=== PATIENT | female | born 1990 | race Caucasian/White ===

== ENCOUNTER 2017-03-23 07:33 | Emergency (ER) | payer BC ==
[2017-03-23 07:43] VITALS: BP 123/66
--- NOTE | 2017-03-23 08:25 | UC ---
Respiratory Complaint HPI - HPI Summary HPI Summary: 26 yo female has been ill x about a week feverish/chills sore throat fatigue/low energy hoars cough no CP or SOB - History of Current Complaint Chief Complaint: UCRespiratory Stated Complaint: FEVER/ACHES/BLACK Hx Obtained From: Patient Hx Last Menstrual Period: unknown, on oral contraceptive Onset/Duration: Gradual Onset, Lasting Days Timing: Constant Severity Initially: Mild Severity Currently: Moderate Pain Intensity: 4 Pain Scale Used: 0-10 Numeric Character: Cough: Nonproductive Aggravating Factors: Nothing Alleviating Factors: Nothing Associated Signs And Symptoms: Positive: Fever, Pleuritic Chest Pain, Hoarseness - Allergies/Home Medications Allergies/Adverse Reactions: Allergies Allergy/AdvReac Type Severity Reaction Status Date / Time No Known Allergies Allergy Verified 03/23/17 07:43 Home Medications: Home Medications Norethindrone (Contraceptive) [Deblitane] 0.35 mg PO DAILY 03/23/17 [History Confirmed 03/23/17] PMH/Surg Hx/FS Hx/Imm Hx Previously Healthy: Yes Cardiovascular History: Pacemaker/ICD - hx AF/AFlutter/VT Respiratory History: Pneumonia Other History Of: Negative For: HIV, Hepatitis B, Hepatitis C, Anticoagulant Therapy - Surgical History Surgical History: Yes Surgery Procedure, Year, and Place: PACER/DEFIBRALATOR INSERTED. DEC 2014. CARDIAC ABLATIONS X'S 4. LOOPE RECORDER- - Family History Known Family History: Positive: Cardiac Disease, Hypertension, Diabetes - Social History Alcohol Use: Rare Substance Use Type: None Smoking Status (MU): Never Smoked Tobacco Review of Systems Constitutional: Fever, Chills, Fatigue ENT: Sore Throat Respiratory: Cough Is Patient Immunocompromised?: No All Other Systems Reviewed And Are Negative: Yes Physical Exam Triage Information Reviewed: Yes Appearance: Well-Appearing, No Pain Distress, Well-Nourished Vital Signs: Initial Vital Signs Temp 97.8 F 03/23/17 07:39 Pulse 51 03/23/17 07:39 Resp 16 03/23/17 07:39 BP 123/66 03/23/17 07:39 Pulse Ox 100 03/23/17 07:39 Vital Signs Reviewed: Yes Eyes: Positive: Conjunctiva Clear ENT: Positive: Hearing grossly normal, Pharyngeal erythema, Tonsillar swelling - mild, Hoarse voice, Uvula midline. Negative: Tonsillar exudate, Trismus, Muffled voice, Sinus tenderness Dental Exam: Normal Neck: Positive: Supple, Nontender, Enlarged Nodes @ - ant cervical Respiratory: Positive: Lungs clear, Normal breath sounds, No respiratory distress, No accessory muscle use Cardiovascular: Positive: RRR, Murmur:Sys:Grade _?_/ - II/ JENNIFER Musculoskeletal: Positive: Strength Intact, ROM Intact Neurological: Positive: Alert Psychological Exam: Normal Skin Exam: Normal UC Diagnostic Evaluation - Laboratory Pertinent Lab Values Are: WNL - STREP (-) O2 Sat by Pulse Oximetry: 100 - normal/not hypoxic - Radiology Xray Interpretation: No Acute Changes Radiology Interpretation Completed By: Radiologist Respiratory Course/Dx - Differential Dx/Diagnosis Provider Diagnoses: viral syndrome. r/o MONO Discharge - Discharge Plan Condition: Stable Disposition: HOME Patient Education Materials: Viral Syndrome (ED), Mononucleosis (ED) Referrals: Guerline Linsday MD [Primary Care Provider] - 4 Days (if not better) Additional Instructions: blood work is pending a blood count and [place] test if MONO + read handout I heard a heart murmur today...it may be due to being ill I suggest you get reexamined this week
--- NOTE | 2017-03-23 09:50 | RAD ---
Indication: Fever, cough. 2 views the chest including dual energy PA views demonstrate no mediastinal shift. Heart is of normal size and configuration. Pacemaker leads are in place. Lung geronimo are clear. IMPRESSION: No active cardiopulmonary disease is noted. Pacemaker leads are in place.
[2017-03-23 13:22] LABS: EBV Response NO
[2017-03-23 13:28] LABS: Hematocrit 29 % (35-47); Hemoglobin 9.4 g/dl (12.0-16.0); Mean Corpuscular HGB Conc 32 g/dl (31-36); Mean Corpuscular Hemoglobin 26 pg (27-31); Mean Corpuscular Volume 81 fL (80-97); Mean Platelet Volume 10 um3 (7.4-10.4); Red Blood Count 3.61 10^6/ul (4.0-5.4); Red Cell Distribution Width 15 % (10.5-15); White Blood Count 8.3 10^3/ul (3.5-10.8)
[2017-03-23 13:34] LABS: Mono Internal Control QC Line Present
--- NOTE | 2017-03-24 07:59 | UC ---
Progress - Progress Note Progress Note: please call this pt and let her know that her labs have revealed anemia. pt should follow up with pcp in the next 1-4 days. if she has any sx such as sob, cp, lightheadedness/dizziness, she should go to the ed immediately.
== END 2017-03-23 10:17 | disposition home or self-care (01) ==
LOC: UCCORT 07:33
DX: B34.9 Viral infection, unspecified (principal); D64.9 Anemia, unspecified
CPT/HCPCS: 36415; 71020; 85025; 86308; 87651; 99211; G0463

== ENCOUNTER 2017-08-30 07:27 | Emergency (ER) | payer BC ==
--- OUTSIDE RECORDS SUMMARY | 2017-08-30 07:36 | XMS REPORT ---
:1990 Author Organization [facility] Address [address] [place] [address] Care Team Providers Name Role Phone Judy Cole Unavailable Unavailable PROBLEMS Type Condition ICD9-CM Code [id number] Code Onset Condition SNOMED Code Dates Status Problem Polyp of corpus N84.0 Active 82109089 uteri Problem Other specified N92.5 Active 09905979 irregular menstruation ALLERGIES No Known Allergies ENCOUNTERS Encounter Location Date Diagnosis [facility] [address] July, OBGYN [place], [place] [id number] [facility] [address] July, Other specified irregular OBGYN [facility], menstruation N92.5 ; [place] [id number] Encounter for gynecological examination (general) (routine) without abnormal findings Z01.419 and Encounter for screening for infections with a predominantly sexual mode of transmission Z11.3 [facility] [address] Feb, Other specified irregular OBGYN [facility], menstruation N92.5 and [place] [id number] Polyp of corpus uteri N84.0 [facility] [address] Nov, Other specified irregular OBGYN [facility], menstruation N92.5 and [place] [id number] Polyp of corpus uteri N84.0 [facility] [address] [place] [place] [id number] [facility] [address] Nov, [place], [place] [id number] [facility] [address] Oct, Other specified irregular OBGYN [facility], menstruation N92.5 [place] [id number] [facility] [address] Oct, OBGYN [place], [place] [id number] [facility] [address] Sep, Other specified irregular OBGYN [facility], menstruation N92.5 [place] [id number] [facility] [address] Sep, [facility] [place] [id number] [place] [facility] [address] Sep, Other specified irregular OBGYN [facility], menstruation N92.5 [place] [id number] [place] [facility] [address] Sep, Other specified irregular OBGYN [facility], menstruation N92.5 [place] [id number] [facility] [address] Sep, Other specified irregular OBGYN [facility], menstruation N92.5 [place] [id number] [place] [facility] [address] Sep, Other specified irregular OBGYN [facility], menstruation N92.5 [place] [id number] [place] [facility] [address] Aug, Other specified irregular OBGYN [facility], menstruation N92.5 [place] [id number] [place] [facility] [address] Aug, Other specified irregular OBGYN [facility], menstruation N92.5 [place] [id number] [facility] [address] Aug, OBGYN [place], [place] [id number] [facility] [address] July, Encounter for OBGYN [facility], gynecological examination [place] [id number] (general) (routine) without abnormal findings Z01.419 ; Encounter for screening for malignant neoplasm of cervix Z12.4 and Other specified irregular menstruation N92.5 IMMUNIZATIONS No Known Immunizations SOCIAL HISTORY Never Assessed REASON FOR REFERRAL FUNCTIONAL STATUS PLAN OF CARE Activity Details Follow Up 1 Year for annual exam Reason: Pending Test CTNG by Swab Pending Test THYROID STIM HORMONE Pending Test FREE T4 Pending Test PROLACTIN VITAL SIGNS Height 66 in 2017-08-20 Weight 155 lbs 2017-08-20 BMI 25.01 kg/m2 2017-08-20 Blood pressure systolic 120 mm Hg 2017-08-20 Blood pressure diastolic 70 mm Hg 2017-08-20 MEDICATIONS Medication Instructions Dosage Frequency Start Date End Date Duration Status B-12 500 mcg sublingually 3 1 tab(s) 8h Active times a day Norlyroc 0.35 orally once a day 1 tab(s) 24h 84 days Active mg PROCEDURES Procedure Date Ordered Result Body Site URINE TEST August 20, 2017 RESULTS Name Result Date Reference Range URINE TEST REASON FOR VISIT annual MEDICAL (GENERAL) HISTORY Type Description Date Medical History cardiomyopathy Medical History hypotension Medical History ventricular tachycardia Medical History atrial flutter Medical History sinus arythmia Medical History first degree heart block Medical History vasovagal syncope Surgical History cardiac ablation 2009 Surgical History cardiac ablation x2 2010 Surgical History cardiac ablation 2014 Surgical History loop recorder implant 2014 Surgical History loop recorder removed 2014 Surgical History ICD 2015 Surgical History hysteroscopy/dilation and polypectomy 12/04/16 Hospitalization History see above
--- OUTSIDE RECORDS SUMMARY | 2017-08-30 07:36 | XMS REPORT ---
:1990 External Reference #:[id number] Author Organization [facility] 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 Unavailable Guerline Lindsay MD Primary Care Physician Unavailable Payers Type Date Identification Numbers Payment Provider Subscriber Commercial Policy Number: [id number] Rubén Edward PayID: [id number] [address] [address] [place] [address] Medigap Part B Effective: 2001 Policy Number: [id number] Rubén Edward Expires: 2011 PayID: [id number] [address] [address] [place] [address] Problems Date Description Provider Status Onset: 08/09/2010 Atrial flutter Jori Hunter M.D., Active FACC Onset: 06/19/2011 Palpitations Jori Hunter M.D., Active FACC Onset: 12/14/2012 Dyspnea Jori Hunter M.D., Active FACC Onset: 12/14/2012 Dizziness and giddiness Jori Hunter M.D., Active FACC Onset: 11/15/2013 Syncope and collapse Jori Hunter M.D., Active FACC Onset: 11/15/2013 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., Active FACC Onset: 11/15/2013 Orthostatic hypotension Jori Hunter M.D., Active FACC Onset: 10/01/2014 Hypomagnesemia Active Onset: 11/05/2013 Syncope Active Onset: 11/14/2015 Spontaneous ecchymosis Jori Hunter M.D., Active FACC Onset: 02/14/2015 Automatic implantable cardiac Jori Hunter M.D., Active defibrillator in situ FACC Onset: 12/09/2014 Bradycardia, unspecified Jori Hunter M.D., Active FACC Onset: 11/11/2014 Tachycardia Jori Hunter M.D., Active FACC Onset: 11/11/2014 Paroxysmal ventricular Jori Hunter M.D., Active tachycardia FACC Family History Date Family Member(s) Problem(s) Comments Father Muscular Dystrophy Mother Mitral Valve Prolapse Mother RBBB Mother Hypertension Mother Cancer Thyroid First Sister Hypertension Social History Type Date Description Comments Lives With Mother And Father Diet Healthy, Well Balanced 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 Working Cigarette Use Never Smoked Cigarettes ETOH Use Rarely consumes alcohol Recreational Drug Use Denies Drug Use Daily Caffeine Consumes on average 2 cups of regular coffee per day Allergies, Adverse Reactions, Alerts Date Description Reaction Status Severity Comments 12/27/2009 NKDA active Medications Medication Date Status Form Strength Qnty SIG Indications Ordering Provider Knee Brace 04/25 Active Misc 1unit apply to M25.562 [facility] s affected MD Angélica Hinged/Maximum area (left Support knee) during day Methyl B-12 Active [place] Unknown /0000 Deblitane Active Tablets 0.35mg as directed Unknown /0000 Diclofenac Sodium 05/28 Hx Tablets 50mg 60tab [address] espinal a day with [place], - food Belinda 07/04 Fludrocortisone 11/26 Hx Tablets 0.1mg 30tab 1 by mouth Jori Sheppard s every day Heike Hunter M.D., FACC 09/30 Metoprolol 11/13 Hx Tablets 25mg 90tab 1/2 by R00.0 Jori M. Succinate ER 24HR s mouth every Davidpita, - hs Belinda, [facility] 11/04 Metoprolol 05/23 Hx Tablets 25mg 90tab /2 by R00.0 Jori M. Succinate ER 24HR s mouth every Davidpita, - day Belinda, [facility] 11/13 Magnesium Oxide 04/06 Hx Capsules 400mg 90cap 2 by Jori M. s mouth twice Elsa, a day Belinda, [facility] Flecainide 08/11 Hx Tablets 50mg 30tab 1 by mouth Jori MZain s 1/2 hour quinn Hunter M.D., [facility] exercising Hyoscyamine 07/19 Hx Tablets 0.125mg 90tab take 1 or 2 Jori Sheppard s tabs when Elsa needed up Belinda, [facility] to 3 times a day Midodrine HCL 11/15 Hx Tablets 10mg 60tab 1 by mouth Jori Zain s twice a day francis Hunter M.D., [facility] No Active 06/18 Hx Unknown Medications - 11/15 Aspirin 01/23 Hx Tablets 81mg 1 po qd 427.32 Ashlie RICARDO Otero, COMPANION Propafenone HCL 08/28 Hx Tablets 150mg 90tab 1 po tid 427.32 Jori MZain teddy Hunter M.D., [facility] Metoprolol 08/23 Hx Tablets 25mg 60tab 1 po bid 427.32 Jori M. Tartrate Heike Asencio M.D., [facility] 08/28 Metoprolol 08/09 Hx Tablets 25mg 60tab 1 po bid 427.32 Jori M. Tartrate teddy Hunter M.D., [facility] Vitamin C Hx Chewtabs 500mg po bid Ashlie / RICARDO Otero, COMPANION Propafenone HCL Hx Tablets 150mg 1/2 tab by 427.32 Unknown /0000 mouth twice a day Aspirin Hx Tablets 325mg 90tab 1 po qd 427.32 Unknown /0000 s - 01/23 Ibuprofen Hx Capsules 200mg 1 tab by 427.32 Unknown /0000 mouth every - day as 01/23 Fludrocortisone Hx Tablets 0.1mg 90tab 1 tab by Jori Sheppard Acetate /0000 s mouth every , M.Barbara, [facility] Aspirin Hx Tablets 81mg 1 by mouth Unknown /0000 every day - 11/13 Vital Signs Date Vital Result Comment 05/28/2017 BP Systolic Sitting Left Arm 104 mmHg BP Diastolic Sitting Left Arm 58 mmHg Heart Rate 52 /min Respiratory Rate 16 /min Height 66 inches 5'6" Weight 157.00 lb BMI (Body Mass Index) 25.3 kg/m2 BSA (Body Surface Area) 1.80 m2 Bandy body weight in kilograms 59 11/27/2016 BP Systolic Sitting Left Arm 116 mmHg BP Diastolic Sitting Left Arm 62 mmHg Heart Rate 51 /min Respiratory Rate 16 /min Height 66 inches 5'6" Weight 148.00 lb BMI (Body Mass Index) 23.9 kg/m2 BSA (Body Surface Area) 1.76 m2 Bandy body weight in kilograms 59 05/28/2016 BP Systolic Sitting Left Arm 111 mmHg BP Diastolic Sitting Left Arm 69 mmHg Heart Rate 50 /min Height 66 inches 5'6" Weight 162.00 lb BMI (Body Mass Index) 26.1 kg/m2 BSA (Body Surface Area) 1.83 m2 Bandy body weight in kilograms 59 04/25/2016 BP Systolic 124 mmHg BP Diastolic 64 mmHg Heart Rate 50 /min Height 65 inches 5'5" Weight 168.00 lb BMI (Body Mass Index) 28.0 kg/m2 BSA (Body Surface Area) 1.84 m2 Bandy body weight in kilograms 57 11/14/2015 BP Systolic 102 mmHg BP Diastolic 66 mmHg Heart Rate 60 /min Respiratory Rate 18 /min Weight 162.00 lb 07/04/2015 BP Systolic Sitting Left Arm 102 mmHg BP Diastolic Sitting Left Arm 64 mmHg Heart Rate 58 /min Height 65 inches 5'5" Weight 162.00 lb BMI (Body Mass Index) 27.0 kg/m2 BSA (Body Surface Area) 1.81 m2 04/06/2015 BP Systolic Sitting Left Arm 100 mmHg BP Diastolic Sitting Left Arm 56 mmHg Heart Rate 56 /min Respiratory Rate 16 /min Height 65 inches 5'5" Weight 159.00 lb BMI (Body Mass Index) 26.5 kg/m2 BSA (Body Surface Area) 1.79 m2 02/14/2015 BP Systolic Sitting Left Arm 106 mmHg BP Diastolic Sitting Left Arm 74 mmHg Heart Rate 54 /min Height 65 inches 5'5" Weight 157.00 lb BMI (Body Mass Index) 26.1 kg/m2 BSA (Body Surface Area) 1.78 m2 O2 % BldC Oximetry 95 % 12/09/2014 BP Systolic Sitting Right Arm 120 mmHg BP Diastolic Sitting Right Arm 82 mmHg Respiratory Rate 16 /min Height 65 inches 5'5" Weight 152.00 lb BMI (Body Mass Index) 25.3 kg/m2 BSA (Body Surface Area) 1.76 m2 11/11/2014 BP Systolic Sitting Right Arm 110 mmHg BP Diastolic Sitting Right Arm 68 mmHg Heart Rate 36 /min Respiratory Rate 12 /min Height 65 inches 5'5" Weight 151.00 lb BMI (Body Mass Index) 25.1 kg/m2 BSA (Body Surface Area) 1.76 m2 08/11/2014 Heart Rate 72 /min Respiratory Rate 16 /min Height 65 inches 5'5" Weight 149.00 lb BMI (Body Mass Index) 24.8 kg/m2 BSA (Body Surface Area) 1.75 m2 07/19/2014 Heart Rate 38 /min Respiratory Rate 18 /min Height 65 inches 5'5" Weight 152.00 lb BMI (Body Mass Index) 25.3 kg/m2 BSA (Body Surface Area) 1.76 m2 03/16/2014 BP Systolic Sitting Left Arm 100 mmHg BP Diastolic Sitting Left Arm 58 mmHg Heart Rate 40 /min Respiratory Rate 16 /min Height 65 inches 5'5" Weight 148.00 lb BMI (Body Mass Index) 24.6 kg/m2 BSA (Body Surface Area) 1.74 m2 11/15/2013 BP Systolic Sitting Right Arm 126 mmHg BP Diastolic Sitting Right Arm 60 mmHg Heart Rate 42 /min Respiratory Rate 14 /min Height 65 inches 5'5" Weight 161.00 lb BMI (Body Mass Index) 26.8 kg/m2 BSA (Body Surface Area) 1.80 m2 12/14/2012 BP Systolic Sitting Right Arm 122 mmHg BP Diastolic Sitting Right Arm 56 mmHg Heart Rate 35 /min Respiratory Rate 16 /min Height 65 inches 5'5" Weight 147.00 lb BMI (Body Mass Index) 24.5 kg/m2 BSA (Body Surface Area) 1.74 m2 06/19/2011 BP Systolic Sitting Right Arm 104 mmHg BP Diastolic Sitting Right Arm 62 mmHg Heart Rate 46 /min Respiratory Rate 14 /min Height 65 inches 5'5" Weight 141.00 lb BMI (Body Mass Index) 23.5 kg/m2 Height Percentile 61 % Weight Percentile 73rd 02/26/2011 BP Systolic Sitting Left Arm 102 mmHg BP Diastolic Sitting Left Arm 52 mmHg Heart Rate 56 /min Respiratory Rate 14 /min Height 65 inches 5'5" Weight 140.00 lb BMI (Body Mass Index) 23.3 kg/m2 Height Percentile 61 % Weight Percentile 73rd 01/23/2011 BP Systolic Sitting Right Arm 102 mmHg BP Diastolic Sitting Right Arm 64 mmHg Heart Rate 46 /min Respiratory Rate 16 /min Height 65 inches 5'5" Weight 143.00 lb BMI (Body Mass Index) 23.8 kg/m2 Height Percentile 61 % Weight Percentile 76th 10/24/2010 BP Systolic Sitting Right Arm 96 mmHg BP Diastolic Sitting Right Arm 72 mmHg Heart Rate 90 /min Respiratory Rate 16 /min Height 65 inches 5'5" Weight 137.00 lb BMI (Body Mass Index) 22.8 kg/m2 Height Percentile 61 % Weight Percentile 70th 09/04/2010 BP Systolic Sitting Right Arm 86 mmHg BP Diastolic Sitting Right Arm 50 mmHg Heart Rate 46 /min Respiratory Rate 14 /min Height 65 inches 5'5" Weight 135.00 lb BMI (Body Mass Index) 22.5 kg/m2 Height Percentile 61 % Weight Percentile 68th 08/28/2010 BP Systolic Sitting Right Arm 94 mmHg BP Diastolic Sitting Right Arm 64 mmHg Heart Rate 80 /min Irregular Respiratory Rate 16 /min Height 65 inches 5'5" Weight 135.00 lb BMI (Body Mass Index) 22.5 kg/m2 Height Percentile 61 % Weight Percentile 6808/23/2010 BP Systolic Sitting Right Arm 96 mmHg BP Diastolic Sitting Right Arm 64 mmHg Heart Rate 100 /min Respiratory Rate 14 /min Height 65 inches 5'5" Weight 134.00 lb BMI (Body Mass Index) 22.3 kg/m2 Height Percentile 61 % Weight Percentile 67th 08/09/2010 BP Systolic Sitting Right Arm 92 mmHg BP Diastolic Sitting Right Arm 62 mmHg Heart Rate 95 /min Respiratory Rate 14 /min Height 65 inches 5'5" Weight 135.00 lb BMI (Body Mass Index) 22.5 kg/m2 Height Percentile 61 % Weight Percentile 68th 05/04/2010 BP Systolic Sitting Right Arm 98 mmHg BP Diastolic Sitting Right Arm 48 mmHg Heart Rate 42 /min Respiratory Rate 14 /min Weight 141.00 lb Weight Percentile 76th 04/03/2010 BP Systolic Sitting Right Arm 98 mmHg BP Diastolic Sitting Right Arm 46 mmHg Heart Rate 40 /min Irregular Respiratory Rate 16 /min Height 66.25 inches 5'6.25" Weight 142.00 lb BMI (Body Mass Index) 22.7 kg/m2 Height Percentile 78 % Weight Percentile 78th 01/02/2010 Heart Rate 80 /min Respiratory Rate 14 /min Height 65 inches 5'5" Weight 140.00 lb BMI (Body Mass Index) 23.3 kg/m2 Height Percentile 62 % Weight Percentile 76th 12/27/2009 BP Systolic Sitting Right Arm 112 mmHg BP Diastolic Sitting Right Arm 70 mmHg Heart Rate 67 /min Respiratory Rate 16 /min Height 65.5 inches 5'5.50" Weight 138.00 lb BMI (Body Mass Index) 22.6 kg/m2 Height Percentile 69 % Weight Percentile 74th Results Test Date Test Result H/L Range Note Comprehensive Metabolic Panel 03/25/2017 Glucose 108 mg/dL High 74-106 1 BUN 11 mg/dL 7-18 1 Creatinine 1.0 mg/dL 0.6-1.3 1 Glom Filtration Rate, Estimate >60 mL/min >60 1 If >60 mL/min >60 1, 2 BUN/Creat 11.0 ratio 1 Sodium 139 mmol/L 136-145 1 Potassium 4.4 mmol/L 3.5-5.1 1 Chloride 107 mmol/L 98-107 1 Carbon Dioxide 26 mmol/L 21-32 1 Anion Gap 6 mEq/L Low 8-16 1 Calcium 9.6 mg/dL 8.5-10.1 1 Total Protein 7.8 g/dL 6.4-8.2 1 Albumin 4.1 g/dL 3.4-5.0 1 Globulin 3.7 g/dL 1.9-4.3 1 Alb/Glob 1.1 ratio 1 Bilirubin,Total 0.3 mg/dL 0.2-1.0 1 Sgot/Ast 23 U/L 15-37 1 SGPT/Alt 25 U/L 12-78 1 Alkaline Phosphatase 71 U/L 45-117 1 CBS W/Automated Diff 03/25/2017 White Blood Count 9.6 K/uL 3.1-10.7 1 Red Blood Count 3.90 M/uL 3.90-5.40 1 Hemoglobin 10.3 gm/dL Low 11.6-15.8 1 Hematocrit 32.7 % Low 36.0-46.1 1 Mean Cell Volume 83.8 fl 80.9-99.0 1 Mean Corpuscular HGB 26.4 pg 25.9-32.7 1 Mean Corpuscular HGB Conc 31.5 g/dL 30.8-34.3 1 Platelet Count 287 K/uL 155-360 1 Red Cell Distri Width SD 43.1 fl 3-47 1 Red Cell Distri Width %CV 14.4 % 11.7-14.4 1 Mean Platelet Volume 10.8 fL 8.9-12.4 1, 3 Neut# 7.23 K/uL High 1.8-7.0 1 Lymph # 1.31 K/uL 1.0-4.0 1 [place] # 0.90 K/uL 0.3-0.9 1 Eos # 0.13 K/uL 0.0-0.5 1 Baso # 0.05 K/uL 0.0-0.1 1 Slide Review 03/25/2017 Slide Review DIFF ORDERED 1 Differential-WBC Confirm 03/25/2017 Total Cells Counted 100 #CELLS 1 Band% 3 % 0-8 1 Neutrophils% 68 % 33-73 1 Lymph% 16 % Low 20-42 1 Atypical Lymph% 2 % 0-7 1 Monocyte% 9 % 0-10 1 Eosinophil% 2 % 0-5 1 Platelet Estimate NORMAL 1 Polychromasia 0-1+ 1 Anisocytosis 1+ 1 Microcytosis 1+ 1 Stomatocyte 0-1+ 1 Laboratory test 03/25/2017 [place] Screen NEGATIVE Negative 1, 4 finding (Heterophile) Influenza A/B Antigen 03/25/2017 Influenza A Antigen Negative (Negative) 1 Influenza B Antigen Negative (Negative) 1, 5 CBC Auto Diff 03/23/2017 White Blood Count 8.3 10^3/uL 3.5-10.8 Red Blood Count 3.61 10^6/uL Low 4.0-5.4 Hemoglobin 9.4 g/dL Low 12.0-16.0 Hematocrit 29 % Low 35-47 Mean Corpuscular Volume 81 fL 80-97 Mean Corpuscular Hemoglobin 26 pg Low 27-31 Mean Corpuscular HGB Conc 32 g/dL 31-36 Red Cell Distribution Width 15 % 10.5-15 Platelet Count 211 10^3/uL 150-450 Mean Platelet Volume 10 um3 7.4-10.4 Abs Neutrophils 6.2 10^3/uL 1.5-7.7 Abs Lymphocytes 1.4 10^3/uL 1.0-4.8 Abs Monocytes 0.6 10^3/uL 0-0.8 Abs Eosinophils 0.1 10^3/uL 0-0.6 Abs Basophils 0.1 10^3/uL 0-0.2 Abs Nucleated RBC 0 10^3/uL Granulocyte % 74.3 % 38-83 Lymphocyte % 16.6 % Low 25-47 Monocyte % 7.2 % 1-9 Eosinophil % 1.3 % 0-6 Basophil % 0.6 % 0-2 Nucleated Red Blood Cells % 0 Laboratory test finding 03/23/2017 Monospot Negative Negative 6 Laboratory test finding 03/23/2017 Rapid Strep Molecular Negative Negative 7 Laboratory test finding 12/04/2016 Urine HCG (Qualitative) NEGATIVE Negative 8, 9 CBS W/Automated Diff 11/27/2016 White Blood Count 7.0 K/uL 3.1-10.7 10 Red Blood Count 4.56 M/uL 3.90-5.40 10 Hemoglobin 13.5 gm/dL 11.6-15.8 10 Hematocrit 40.8 % 36.0-46.1 10 Mean Cell Volume 89.5 fl 80.9-99.0 10 Mean Corpuscular HGB 29.6 pg 25.9-32.7 10 Mean Corpuscular HGB Conc 33.1 g/dL 30.8-34.3 10 Platelet Count 226 K/uL 150-400 10 Red Cell Distri Width SD 43.8 fl 3-47 10 Red Cell Distri Width %CV 13.8 % 11.7-14.4 10 Mean Platelet Volume 12.0 fL 8.9-12.4 10 Neut% 71.7 % 40.4-72.8 10 Lymph % 21.2 % 20.0-42.0 10 [place] % 5.9 % 4.3-13.2 10 Eo% 0.6 % 0.0-6.6 10 Bas% 0.6 % 0.0-1.1 10 Neut# 5.02 K/uL 1.8-7.0 10 Lymph # 1.48 K/uL 1.0-4.0 10 [place] # 0.41 K/uL 0.3-0.9 10 Eos # 0.04 K/uL 0.0-0.5 10 Baso # 0.04 K/uL 0.0-0.1 10 Comprehensive Metabolic Panel 11/27/2016 Glucose 65 mg/dL Low 74-106 10 BUN 10 mg/dL 7-18 10 Creatinine 1.1 mg/dL 0.6-1.3 10 Glom Filtration Rate, Estimate >60 mL/min >60 10 If >60 mL/min >60 10, 11 BUN/Creat 9.0 ratio 10 Sodium 143 mmol/L 136-145 10 Potassium 4.0 mmol/L 3.5-5.1 10 Chloride 111 mmol/L High 98-107 10 Carbon Dioxide 27 mmol/L 21-32 10 Anion Gap 5 mEq/L Low 8-16 10 Calcium 9.9 mg/dL 8.5-10.1 10 Total Protein 7.9 g/dL 6.4-8.2 10 Albumin 4.6 g/dL 3.4-5.0 10 Globulin 3.3 g/dL 1.9-4.3 10 Alb/Glob 1.4 ratio 10 Bilirubin,Total 0.3 mg/dL 0.2-1.0 10 Sgot/Ast 12 U/L Low 15-37 10, 12 SGPT/Alt 20 U/L 12-78 10 Alkaline Phosphatase 71 U/L 45-117 10 Basic Metabolic Panel 11/13/2013 Glucose 92 mg/dL 76-115 BUN 17 mg/dL 5-23 Creatinine 1.0 mg/dL 0.5-1.4 Glom Filtration Rate, Estimate >60 mL/min >60 If >60 mL/min >60 13 BUN/Creat 17.0 ratio Sodium 137 mmol/L 136-145 Potassium 4.2 mmol/L 3.5-5.1 Chloride 104 mmol/L 98-107 Carbon Dioxide 29 mEq/L 18-29 Anion Gap 8 mEq/L 8-16 Calcium 9.9 mg/dL 8.5-10.1 1 BODY ACHES, FLU LIKE SYMPTOMS 2 Note: Persistent reduction for 3 months or more in an eGFR <60 mL/min/1.73 m2 defines CKD. Patients with eGFR values >/=60 mL/min/1.73 m2 may also have CKD if evidence of persistent proteinuria is present. The original MDRD equation for estimated GFR is not valid for patients less than 18 years of age. Additional information may be found at www.kdoqi.org. 3 03/25/17 0402: NEUT% previously reported as: 75.1 H % Amended result called to: [] - 03/25/17 at 0402 03/25/17 0402: LYMPH % previously reported as: 13.6 L % Amended result called to: [] - 03/25/17 at 0402 03/25/17 0402: MONO % previously reported as: 9.4 % Amended result called to: [] - 03/25/17 at 0402 03/25/17 0402: EO% previously reported as: 1.4 % Amended result called to: [] - 03/25/17 at 0402 03/25/17 0402: BAS% previously reported as: 0.5 % Amended result called to: [] - 03/25/17 at 0402 4 METHOD: [place] II Rapid Immunochromatographic assay [place] [employer] 5 Please Note: A POSITIVE result for influenza A and/or B antigen does not rule out a co-infection with other pathogens or identify any specific influenza A virus subtype. A NEGATIVE result for influenza A and/or B antigen does not preclude influenza virus infection and should not be the sole basis for treatment or other management decisions, since the antigen present in the specimen may be below the detection limit of the test. A NEGATIVE result is PRESUMPTIVE and it is recommended these results be confirmed by virus culture or an FDA-cleared influenza A and B molecular assay. Method: CloudBase[employer] Veritor Chromatographic immunoassay 6 Would you like an EBV if Monospot is Negative?: N 7 Methods Time Analyst: [id number] CONSULT 11/27 55407 9 FIRST MORNING SPECIMENS GENERALLY CONTAIN THE HIGHEST CONCENTRATION OF HCG AND ARE RECOMMENDED FOR EARLY DETECTION OF . Method: [employer]idel QuickVue One-Step Immunoassay 10 R00.1 11 Note: Persistent reduction for 3 months or more in an eGFR <60 mL/min/1.73 m2 defines CKD. Patients with eGFR values >/=60 mL/min/1.73 m2 may also have CKD if evidence of persistent proteinuria is present. The original MDRD equation for estimated GFR is not valid for patients less than 18 years of age. Additional information may be found at www.kdoqi.org. 12 Values below the stated reference ranges of AST and ALT can be seen in normal populations. Clinical correlation is suggested. 13 Note: Persistent reduction for 3 months or more in an eGFR <60 mL/min/1.73 m2 defines CKD. Patients with eGFR values >/=60 mL/min/1.73 m2 may also have CKD if evidence of persistent proteinuria is present. The original MDRD equation for estimated GFR is not valid for patients less than 18 years of age. Additional information may be found at www.kdoqi.org. Procedures Date CPT Code Description Status 07/01/2017 61480 Dual Pacemaker Programming Anayisis, Review And Report Completed 06/24/2017 34237 Echocardiogram Complete Completed 02/05/2017 99757 Pacemaker/Cardio-Defibrillator Remote Data Acquistion Completed 02/05/2017 54083 Remote Icd Monitor Completed 11/27/2016 74298 EKG-Tracing And Report Completed 10/02/2016 56967 Pacemaker/Cardio-Defibrillator Remote Data Acquistion Completed 10/02/2016 10027 Pacemaker/Cardio-Defibrillator Remote Data Acquistion Completed 10/02/2016 22270 Remote Icd Monitor Completed 10/02/2016 16792 Remote Icd Monitor Completed 07/02/2016 65109 Cardioversion/Defibrillation Dual Pacemaker Completed 07/02/2016 18797 Cardioversion/Defibrillation Dual Pacemaker Completed 01/16/2016 92551 Cardioversion/Defibrillation Dual Pacemaker Completed 01/16/2016 16823 Cardioversion/Defibrillation Dual Pacemaker Completed 11/14/2015 37496 Cardioversion/Defibrillation Dual Pacemaker Completed 11/14/2015 12008 Cardioversion/Defibrillation Dual Pacemaker Completed 07/04/2015 81607 Cardioversion/Defibrillation Dual Pacemaker Completed 07/04/2015 83957 Cardioversion/Defibrillation Dual Pacemaker Completed 05/23/2015 34269 Cardioversion/Defibrillation Dual Pacemaker Completed 05/23/2015 44059 Cardioversion/Defibrillation Dual Pacemaker Completed 04/03/2015 69780 [employer] Performance Continuous Completed Electrocardio 03/14/2015 64506 Cardioversion/Defibrillation Dual Pacemaker Completed 03/14/2015 81305 Cardioversion/Defibrillation Dual Pacemaker Completed 02/14/2015 83174 Cardioversion/Defibrillation Dual Pacemaker Completed 02/14/2015 10660 Cardioversion/Defibrillation Dual Pacemaker Completed 02/14/2015 30577 EKG-Tracing And Report Completed 01/10/2015 87643 Implantable Loop [employer] Heart Rhythm Completed Derived Data 01/10/2015 14930 [employer] Heart Rhythm Completed Derived Data 12/09/2014 33430 [employer]plant[employer] Heart Rhythm Completed Derived Data 12/07/2014 98904 [employer] Heart Rhythm Completed Derived Data 11/22/2014 68716 [employer] Heart Rhythm Completed Derived Data 11/22/2014 39722 [employer] Heart Rhythm Completed Derived Data 11/17/2014 87917 Stress Test Physician Super Only Completed 11/17/2014 06331 Stress Test Physician Super Only Completed 11/17/2014 05356 Stress Test Interpre And Report Only Completed 11/15/2014 64174 [employer] Heart Rhythm Completed Derived Data 11/15/2014 13612 [employer] Heart Rhythm Completed Derived Data 11/11/2014 20526 [employer] Heart Rhythm Completed Derived Data 10/05/2014 36567 Implanation Of Cardiac Event Recorder Completed 08/05/2014 12856 Stress Test Interpre And Report Only Completed 08/05/2014 22934 Stress Test Physician Super Only Completed 08/05/2014 98131 Stress Test Physician Super Only Completed 07/19/2014 12424 EKG-Tracing And Report Completed 11/15/2013 67887 EKG-Tracing And Report Completed 11/05/2013 25291 Echocardiogram Complete Completed 12/14/2012 38832 [employer] Performance Continuous Completed Electrocardio 12/14/2012 02483 EKG-Tracing And Report Completed 06/19/2011 01909 EKG-Tracing And Report Completed 01/23/2011 49304 EKG-Tracing And Report Completed 10/24/2010 90997 EKG-Tracing And Report Completed 10/24/2010 98290 EKG-Tracing And Report Completed 09/04/2010 34539 EKG-Tracing And Report Completed 09/04/2010 62655 EKG-Tracing And Report Completed 08/29/2010 17660 EKG Interpretation And Report Only Completed 08/28/2010 66085 EKG-Tracing And Report Completed 08/23/2010 33524 EKG-Tracing And Report Completed 08/09/2010 45174 EKG-Tracing And Report Completed 04/03/2010 61725 EKG-Tracing And Report Completed 01/02/2010 41773 EKG-Tracing And Report Completed 01/01/2010 12458 Echocardiogram Complete Completed 01/01/2010 19124 Stress Test Interpre And Report Only Completed 01/01/2010 11177 Stress Test Physician Super Only Completed 12/27/2009 29199 EKG-Tracing And Report Completed Encounters Type Date Location Provider CPT E/M Dx Office Visit 05/28/2017 2:20p Cardiology Office Ashlie Veliz, 30931 I47.2 MSN, COMPANION I48.3 I95.1 R01.1 Z95.810 Office Visit 11/27/2016 1:00p Cardiology Office Ashlie Veliz, 81616 Z01.810 MSN, COMPANION R00.1 I47.2 Z95.810 Office Visit 08/07/2016 2:00p Orthopaedic Office Carlene Dailey, 98024 M22.42 RPA Office Visit 07/04/2016 1:15p Orthopaedic Office Carlene Dailey, 66229 M22.42 RPA M25.562 M25.462 Office Visit 06/27/2016 8:45a Orthopaedic Office Carlene Dailey, 97484 M22.42 RPA M25.562 M25.462 Office Visit 05/28/2016 2:00p Orthopaedic Office Carlene Dailey, 15015 M25.562 RPAC M22.42 Office Visit 04/25/2016 1:20p [place] [address] M25.562 Z95.810 Office Visit 11/14/2015 9:00a Cardiology Office Jori Hunter M.D., 40262 R55 FACC R23.3 I47.2 I48.3 Office Visit 07/04/2015 9:40a Cardiology Office Jori Hunter, 93177 R00.0 M.D., FACC R00.1 Z95.810 Office Visit 05/23/2015 8:30a Cardiology Office Ashlie Veliz, 42703 R00.0 MSN, COMPANION I48.3 I47.2 R00.1 Z95.810 Office Visit 04/06/2015 8:00a Cardiology Office Jori Hunter, 24110 I48.3 M.D., FACC I47.2 R55 R00.1 Office Visit 02/14/2015 9:30a Cardiology Office Jori Hunter, 28076 R00.0 M.D., FACC R00.1 I47.2 R55 Z95.810 Office Visit 12/09/2014 3:00p Cardiology Office Jori Hunter M.D., 76081 R55 FACC R00.0 R00.1 Office Visit 11/11/2014 10:30a Cardiology Office Jori Hunter, 64402 427.89 M.D., FACC 427.32 785.0 Office Visit 10/01/2014 2:25p [facility] Bao Keller M.D. 88769 427.32 [facility] Office Visit 08/11/2014 2:20p Cardiology Office Jori Hunter, 86314 427.89 M.D., FACC 458.0 427.32 Office Visit 07/19/2014 3:30p Cardiology Office Jori Hunter, 30600 427.89 M.DZain, FACC 458.0 427.32 Office Visit 03/16/2014 11:20a Cardiology Office Jori Hunter, 38915 427.89 M.D., FACC 458.0 780.2 427.32 Office Visit 11/15/2013 8:50a Cardiology Office Jori Hunter, 11357 780.2 M.DZain, FACC 427.89 458.0 427.32 Office Visit 11/05/2013 12:53p [facility] Tracy Mckinney, 04332 780.2 [facility] M.DZain Office Visit 11/05/2013 2:12p Cardiology Office Jori Hunter, 68599 780.2 M.D., FACC Office Visit 12/14/2012 2:30p Cardiology Office Jori Hunter, 20669 786.05 M.D., [facility] 427.32 780.4 Office Visit 06/19/2011 2:00p Cardiology Office Jori Hunter, 41393 427.32 M.D., FACC 785.1 Office Visit 02/26/2011 8:40a Cardiology Office Jori Hunter, 33372 427.32 M.D., FACC Office Visit 01/23/2011 8:40a Cardiology Office Ashlie Veliz, 14063 427.32 MSN, COMPANION 780.2 Office Visit 10/24/2010 9:40a Cardiology Office Ashlie Veliz, 45397 427.32 MSN, COMPANION 780.2 Office Visit 09/04/2010 9:10a Cardiology Office Ashlie Kingyder, 91940 427.32 MSN, COMPANION Office Visit 08/28/2010 11:20a Cardiology Office Jori Hunter, 51978 427.32 M.D., FACC Office Visit 08/23/2010 11:00a Cardiology Office Jori Hunter, 05966 427.32 M.D., FACC Office Visit 08/09/2010 10:20a Cardiology Office Jori Hunter, 80129 427.32 M.D., FACC Office Visit 05/04/2010 9:10a Cardiology Office Ashlie Veliz, 33955 427.32 MSN, COMPANION 780.2 Office Visit 04/03/2010 1:20p Cardiology Office Ashlie Kingyder, 58316 427.32 MSN, COMPANION 780.2 Office Visit 01/02/2010 10:20a Cardiology Office Ashlie Kingyder, 22833 427.32 MSN, COMPANION 786.50 Office Visit 12/27/2009 10:20a Cardiology Office Ashlie Kingyder, 96789 427.32 MSN, COMPANION 786.50 Plan of Care Future Appointment(s):11/18/2017 11:20 am - NENA Aranda at Cardiology [id number]/26/2017 1:00 pm - NENA Aranda at Cardiology [id number] - Ashlie Veliz, MSN, FNPI47.2 Ventricular tachycardiaComments: Monitor via ICD. Will repeat the echo to reassess her LVF.I48.3 Typical atrial flutterComments:Monitor.I95.1 Orthostatic hypotensionComments:No changes.R01.1 Cardiac murmur, dnvpsutsnahZ45.810 Presence of automatic (implantable) cardiac defibrillatorComments:Followed in our ICD clinic, per protocolAllFollow up: Follow up visit in six months. Patient was instructed to call for the results of the echo.
--- OUTSIDE RECORDS SUMMARY | 2017-08-30 07:36 | XMS REPORT ---
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 70357655 uteri Problem Other specified N92.5 Active 94890717 irregular menstruation ALLERGIES No Information ENCOUNTERS Encounter Location Date Diagnosis [facility] [address] July, [place]BGYN [place] [id number] [facility] July, Other specified irregular OBGYN [facility], menstruation N92.5 ; [place] [id number] Encounter for gynecological examination (general) (routine) without abnormal findings Z01.419 and Encounter for screening for infections with a predominantly sexual mode of transmission Z11.3 [facility] [address] Feb, Other specified irregular OBGYN [facility], menstruation N92.5 and [place] [id number] Polyp of corpus uteri N84.0 [facility] Nov, Other specified irregular OBGYN [facility], menstruation N92.5 and [place] [id number] Polyp of corpus uteri N84.0 Counts Include [address] [facility] At [facility] [address] [facility] [place] [id number] [facility] [address] Nov, [place]BGYN [place], [place] [id number] [facility] Oct, Other specified irregular OBGYN [facility], menstruation N92.5 [place] [id number] [facility] Oct, OBGYN [place] [id number] [facility] 103 Sep, Other specified irregular OBGYN [facility], menstruation N92.5 [place] [id number] [facility] [address] Sep, OBG[place] [id number] [facility] 103 Sep, Other specified irregular OBGYN [facility], menstruation N92.5 [place] [id number] [facility] [facility] 103 Sep, Other specified irregular OBGYN [facility], menstruation N92.5 [place] [id number] [facility] 103 Sep, Other specified irregular OBGYN [facility], menstruation N92.5 [place] [id number] [facility] [facility] 103 Sep, Other specified irregular OBGYN [facility], menstruation N92.5 [place] [id number] [facility] 103 Aug, Other specified irregular OBGYN [facility], menstruation N92.5 [place] [id number] [facility] 103 Aug, Other specified irregular OBGYN [facility], menstruation N92.5 [place] [id number] [facility] [address] Aug, OBGYN [place] [id number] [facility] [address] July, Encounter for OBGYN [facility], gynecological examination [place] [id number] (general) (routine) without abnormal findings Z01.419 ; Encounter for screening for malignant neoplasm of cervix Z12.4 and Other specified irregular menstruation N92.5 IMMUNIZATIONS No Known Immunizations SOCIAL HISTORY Never Assessed REASON FOR REFERRAL FUNCTIONAL STATUS PLAN OF CARE VITAL SIGNS MEDICATIONS Unknown Medications PROCEDURES No Known procedures RESULTS No Results REASON FOR VISIT Message MEDICAL (GENERAL) HISTORY Type Description Date Medical History cardiomyopathy Medical History hypotension Medical History ventricular tachycardia Medical History atrial flutter Medical History sinus arythmia Medical History first degree heart block Medical History vasovagal syncope Surgical History cardiac ablation 2010 Surgical History cardiac ablation x2 2010 Surgical History cardiac ablation 2014 Surgical History loop recorder implant 2014 Surgical History loop recorder removed 2014 Surgical History ICD 2015 Surgical History hysteroscopy/dilation and polypectomy 12/04/16 Hospitalization History see above
[2017-08-30 07:44] VITALS: BP 111/48
--- NOTE | 2017-08-30 07:47 | UC ---
Back Pain HPI - HPI Summary HPI Summary: Patient presents to urgent care with complaint of right buttock pain since last Friday. Patient states she was doing lifts in the gym. Patient denies any injury at the time of the deadlifts and states she had good form. Patient states later that day she went for a run when she started to feel pain in her right buttock. Patient states since this time continues to have pain deep in the buttock. Patient states it's sharp and feels tight. Patient states she's been trying to stretch with little improvement. Patient has taken Motrin 800 mg in the morning with some relief but does not be dosed in the day. Patient did take one of her mother struck several with improvement of symptoms on Friday. Patient denies any weakness or paresthesia of the leg. Patient states she is walking with a limp and has noticed some discomfort in her left back related to this. Patient without history of injury. 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 No analgesic today. She was not any other complaint. No change in bowel or bladder. Medications reviewed this visit. - History of Current Complaint Chief Complaint: UCBackPain Stated Complaint: LOW BACK PAIN Time Seen by Provider: 08/30/17 07:33 Hx Obtained From: Patient Hx Last Menstrual Period: unknown ?: No Onset/Duration: Sudden Onset Timing: Constant Severity Initially: Moderate Severity Currently: Moderate Pain Intensity: 8 Pain Scale Used: 0-10 Numeric Back Pain: Is Discrete @ - buttock Character: Sharp Aggravating Factor(s): Movement, Bending, Walking Alleviating Factor(s): Position Associated Signs And Symptoms: Positive: Negative - Allergies/Home Medications Allergies/Adverse Reactions: Allergies Allergy/AdvReac Type Severity Reaction Status Date / Time No Known Allergies Allergy Verified 08/30/17 07:36 Home Medications: Home Medications Cyclobenzaprine TAB* [Flexeril 10 MG TAB*] 10 mg PO ONCE PRN 08/30/17 [History Confirmed 08/30/17] Ibuprofen TAB* [Advil TAB*] 800 mg PO Q6H PRN 08/30/17 [History Confirmed ] PMH/Surg Hx/FS Hx/Imm Hx Previously Healthy: Yes Other History Of: Negative For: HIV, Hepatitis B, Hepatitis C, Anticoagulant Therapy - Surgical History Surgical History: Yes Surgery Procedure, Year, and Place: PACER/DEFIBRALATOR INSERTED. DEC 2014. CARDIAC ABLATIONS X'S 4. LOOPE RECORDER- - Family History Known Family History: Positive: Cardiac Disease, Hypertension, Diabetes - Social History Occupation: Employed Full-time Lives: With Family Alcohol Use: Occasionally Substance Use Type: None Smoking Status (MU): Never Smoked Tobacco Review of Systems Constitutional: Negative All Other Systems Reviewed And Are Negative: Yes Physical Exam Triage Information Reviewed: Yes Appearance: Well-Appearing, Well-Nourished Vital Signs: Initial Vital Signs Temp 97.9 F 08/30/17 07:37 Pulse 64 08/30/17 07:37 Resp 18 08/30/17 07:37 BP 111/48 08/30/17 07:37 Pulse Ox 98 08/30/17 07:37 Vital Signs Reviewed: Yes Eye Exam: Normal ENT: Positive: Hearing grossly normal Neck exam: Normal Neck: Positive: Supple, Nontender, No Lymphadenopathy Respiratory: Positive: No respiratory distress, No accessory muscle use Cardiovascular: Positive: Other: - 2+ PT Musculoskeletal: Positive: Other: - No pain spinous process c/t/l/s No paramuscle pain + TTP deep right buttock Pain increases with SLE right, flex/ ext knee against resistance mild discomfort with internal rotation and abduction against resistance no knee pain fle/ext ankle great toe Neurological Exam: Normal Neurological: Positive: Alert, Other: - 2+ patellar b/l, achilles b/l no clonus Psychological Exam: Normal Skin Exam: Normal Back Pain Course/Dx - Course Course Of Treatment: Patient presents with discomfort deep-seated in her right buttock. Pain worse with extension and internal rotation of the right lower extremity. Patient without any distal focal findings. Patient's CSM intact. Patient with some intermittent slow relief with Motrin and one of her mother's plexus. Discussed with patient at length. Suspect symptoms are related to piriformis muscle strain. Recommended heat and stretching. Recommended Motrin and Tylenol routinely. Flexeril for breakthrough pain. Flexeril precautions discussed at length with patient. He states understanding. Patient given referral to sports medicine clinic as well as physical therapy. Encourage patient heat and stretching. Offered patient crutches to prevent limping the patient declined. She states she would not use them. Patient had a urinalysis which was negative to exam. Patient strict return precautions given. Patient comfortable and in agreement with plan. - Differential Dx/Diagnosis Provider Diagnoses: muscle strain, piriformis strain Discharge - Sign-Out/Discharge Documenting (check all that apply): Post-Discharge Follow Up - Discharge Plan Condition: Stable Disposition: HOME Prescriptions: Cyclobenzaprine TAB* [Flexeril 10 MG TAB*] 5 mg PO BID PRN #10 tab PRN Reason: spasm Patient Education Materials: Muscle Strain (ED), Piriformis Syndrome (ED) Referrals: Guerline Lindsay MD [Primary Care Provider] - Additional Instructions: - Okay to alternate ibuprofen (Advil, Motrin) 600mg and Tylenol 1000mg product every 3 hours as needed for pain. Take with food. Do NOT take for more than 4-[address], -Take flexeril - muscle relaxer as prescribed - this medication will cause sedation - do not drive, operate machinery or drink alcohol while taking this medication -Apply moist heat to your back for 20 minutes at a time, 4-5 times a day. Once your muscles are warm, slow gentle stretching exercises are important - it is recommended you avoid activities that cause increased pain -You have been given referral information to the sports medicine clinic.It is recommended you call tomorrow to schedule an appointment. you have also been given a prescription for physical therapy. It is recommended you schedule and appointment for evaluation and treatment. -If you pain is uncontrolled - go to an emergency department for further treatment - Billing Disposition and Condition Condition: STABLE Disposition: HOME
== END 2017-08-30 08:19 | disposition home or self-care (01) ==
LOC: UCCORT 07:27
DX: S76.311A Strain of muscle, fascia and tendon of the posterior muscle group at thigh level, right thigh, initial encounter (principal); X50.0XXA Overexertion from strenuous movement or load, initial encounter; Y92.9 Unspecified place or not applicable
CPT/HCPCS: 81003; 99212; G0463

== ENCOUNTER 2017-10-02 08:02 | Emergency (ER) | payer BC ==
[2017-10-02 08:25] VITALS: BP 114/64
--- NOTE | 2017-10-02 09:06 | UC ---
Complaint Female HPI - HPI Summary HPI Summary: This patient is a 27-year-old female that presents here for evaluation of gross hematuria. She denies any dysuria urgency or frequency. She has known nausea vomiting or diarrhea. He denies any vaginal discharge or itching. Initially she thought she was on her period. She inserted a tampon but has had no vaginal bleeding. - History Of Current Complaint Chief Complaint: UCGeneralIllness Stated Complaint: BLOOD IN URINE Time Seen by Provider: 10/02/17 08:31 Hx Obtained From: Patient Hx Last Menstrual Period: unknown Onset/Duration: Gradual Onset, Lasting Hours Timing: Intermittent, Lasting Seconds Severity Initially: Mild Severity Currently: None Pain Intensity: 0 Pain Scale Used: 0-10 Numeric Aggravating Factor(s): Urination - Allergies/Home Medications Allergies/Adverse Reactions: Allergies Allergy/AdvReac Type Severity Reaction Status Date / Time No Known Allergies Allergy Verified 10/02/17 08:19 PMH/Surg Hx/FS Hx/Imm Hx Previously Healthy: Yes Cardiovascular History: Pacemaker/ICD Other Cardiovascular History: A flutter, [place] Other History Of: Negative For: HIV, Hepatitis B, Hepatitis C, Anticoagulant Therapy - Surgical History Surgical History: Yes Surgery Procedure, Year, and Place: PACER/DEFIBRALATOR INSERTED. DEC 2014. CARDIAC ABLATIONS X'S 4. LOOPE RECORDER- - Family History Known Family History: Positive: Cardiac Disease, Hypertension, Diabetes - Social History Alcohol Use: Occasionally Substance Use Type: None Smoking Status (MU): Never Smoked Tobacco Review of Systems Constitutional: Negative Skin: Negative Eyes: Negative ENT: Negative Respiratory: Negative Cardiovascular: Negative Gastrointestinal: Negative Genitourinary: Hematuria Motor: Negative Neurovascular: Negative Musculoskeletal: Negative Neurological: Negative Psychological: Negative Is Patient Immunocompromised?: No All Other Systems Reviewed And Are Negative: Yes Physical Exam Triage Information Reviewed: Yes Appearance: Well-Appearing, No Pain Distress, Well-Nourished Vital Signs: Initial Vital Signs Temp 98.5 F 10/02/17 08:20 Pulse 51 10/02/17 08:20 Resp 15 10/02/17 08:20 BP 114/64 10/02/17 08:20 Pulse Ox 100 10/02/17 08:20 Vital Signs Reviewed: Yes Eyes: Positive: Conjunctiva Clear ENT: Positive: Hearing grossly normal. Negative: Nasal congestion, Nasal drainage, Trismus, Muffled voice, Hoarse voice Neck: Positive: Supple, Nontender Respiratory: Positive: Lungs clear, Normal breath sounds, No respiratory distress Cardiovascular: Positive: RRR, No Murmur Abdomen Description: Positive: Nontender, No Organomegaly, Soft Bowel Sounds: Positive: Present Musculoskeletal: Positive: ROM Intact, No Edema Neurological: Positive: Alert Psychological Exam: Normal Diagnostics - Laboratory Diagnostic Studies Completed/Ordered: UA: -. UHCG- Complaint Female Dx - Differential Dx/Diagnosis Provider Diagnoses: hematuria by history. normal urine analysis today Discharge - Sign-Out/Discharge Documenting (check all that apply): Discharge/Admit/Transfer - Discharge Plan Condition: Stable Disposition: HOME Patient Education Materials: Hematuria (ED) Referrals: Guerline Lindsay MD [Primary Care Provider] - 2 Weeks Additional Instructions: your urine specimen here showed no blood I suggest you get rechecked in 2 weeks with your MD a urine culture is pending - Billing Disposition and Condition Condition: STABLE Disposition: Home
== END 2017-10-02 09:06 | disposition home or self-care (01) ==
LOC: UCCORT 08:02
DX: Z03.89 Encounter for observation for other suspected diseases and conditions ruled out (principal); Z95.810 Presence of automatic (implantable) cardiac defibrillator
CPT/HCPCS: 81003; 84702; 87086; 99211; G0463

== ENCOUNTER 2019-02-27 19:40 | Emergency (ER) | payer BC ==
[2019-02-27 19:53] VITALS: BP 126/78
--- NOTE | 2019-02-27 19:56 | UC ---
Abdominal Pain Female HPI - HPI Summary HPI Summary: Pt has been having back pain daily for the past few weeks. Pain is in lower abdomen. Pt went to PCP on Friday and rx'd cyclobenzaprine. Pt states she feels weak today, and when she urinates it is a weak stream. Pt denies urinary urgency or frequency. Pt took test on friday which was negative, pt has IUD in place. - History of Current Complaint Chief Complaint: UCAbdominalPain Stated Complaint: ABD PAIN X 2 WEEKS Time Seen by Provider: 02/27/19 19:54 Hx Obtained From: Patient Hx Last Menstrual Period: unknown ?: No Onset/Duration: Gradual Onset, Lasting Weeks Timing: Constant Severity Initially: Severe Severity Currently: Severe Pain Intensity: 7 Location: Suprapubic Radiates to: Back Allergies/Adverse Reactions: Allergies Allergy/AdvReac Type Severity Reaction Status Date / Time No Known Allergies Allergy Verified 02/27/19 19:45 Home Medications: Home Medications Cyclobenzaprine HCl 1 tab PO ONCE 02/27/19 [History Confirmed 02/27/19] Ibuprofen TAB* [Advil TAB*] 400 mg PO ONCE 02/27/19 [History Confirmed 02/27/19] PMH/Surg Hx/FS Hx/Imm Hx Previously Healthy: Yes Other History Of: Negative For: HIV, Hepatitis B, Hepatitis C, Anticoagulant Therapy - Surgical History Surgical History: Yes Surgery Procedure, Year, and Place: PACER/DEFIBRALATOR INSERTED. DEC 2014. CARDIAC ABLATIONS X'S 4. LOOPE RECORDER- - Family History Known Family History: Positive: Cardiac Disease, Hypertension, Diabetes - Social History Alcohol Use: Occasionally Substance Use Type: None Smoking Status (MU): Never Smoked Tobacco Review of Systems All Other Systems Reviewed And Are Negative: Yes Gastrointestinal: Positive: Abdominal Pain, Nausea Musculoskeletal: Positive: Myalgia Is Patient Immunocompromised?: No Physical Exam Triage Information Reviewed: Yes Appearance: Well-Nourished, Ill-Appearing, Pain Distress Vital Signs: Initial Vital Signs Temp 98.8 F 02/27/19 19:46 Pulse 56 02/27/19 19:46 Resp 16 02/27/19 19:46 BP 126/78 02/27/19 19:46 Pulse Ox 100 02/27/19 19:46 Vital Signs Reviewed: Yes Eye Exam: Normal ENT Exam: Normal Dental Exam: Normal Neck exam: Normal Respiratory Exam: Normal Abdominal Exam: Normal Abdomen Description: Positive: CVA Tenderness (R) - pos, CVA Tenderness (L) - pos, Guarding, Other: - rebound tenderness in LRQ, peritoneal irration from movment and standing up straight. Abd Pain Female Course/Dx - Course Course Of Treatment: patient is in significant pain, symtpoms suggestive of appendicitis, UA was clean and urine was - Differential Dx/Diagnosis Differential Diagnosis: Appendicitis, , Urinary Tract Infection Provider Diagnosis: RLQ abdominal pain Discharge ED - Sign-Out/Discharge Documenting (check all that apply): Patient Departure All imaging exams completed and their final reports reviewed: No Studies - Discharge Plan Condition: Stable Disposition: HOME Patient Education Materials: Acute Abdominal Pain (ED) Referrals: Guerline Lindsay MD [Primary Care Provider] - Additional Instructions: 1. report to ER for high level of evaluation - Billing Disposition and Condition Condition: STABLE Disposition: Home
== END 2019-02-27 20:24 | disposition home or self-care (01) ==
LOC: UCCORT 19:40
DX: R10.31 Right lower quadrant pain (principal)
CPT/HCPCS: 81003; 84702; 99212; G0463